=== PATIENT | male | born 1980 | race Caucasian/White ===

== ENCOUNTER 2019-02-28 22:26 | Outpatient (CLI) | payer OTHER | END 2019-02-28 22:27 | disposition EMS.NT | LOC: EMS 22:26 | PROVIDERS: ATTEND Surgery | DX: R55 Syncope and collapse (principal) ==

== ENCOUNTER 2019-02-28 23:43 | Emergency (ER) | payer OTHER ==
[2019-03-01] MEDS ORDERED: ONDANSETRON 4 MG/2 ML VIAL IVP STA
--- NOTE | 2019-03-01 00:03 | ED Physician Documentation ---
PD HPI CHEST PAIN - Stated complaint Stated Complaint: DIZZY - Chief complaint Chief Complaint: General - History obtained from History obtained from: Patient, EMS - History of Present Illness Timing - onset: How many hours ago (3) Timing - onset during: Light activity Timing - details: Abrupt onset, Still present (Patient had onset about 830 this evening of substernal chest pain associated with nausea lightheadedness and feeling sweaty. He states he got very lightheaded and had a near syncopal episode in the bathroom. He denied any injury from it. He does not feel that he completely passed out. He continued with the chest discomfort. He thought it would be indigestion or a reaction to eating shrimp they had had for dinner just prior to that. However the chest discomfort and lightheadedness has continued so they called EMS for transfer to the hospital. En route he is found to be bradycardic approximately rate of 50. He is slightly hypotensive with a blood pressure of 97/64. He has not had any prior heart disease. He was feeling okay earlier in the day.) Quality: Pressure, Tightness Location: Substernal Radiation: Back. No: Neck Improved by: No: Rest Worsened by: No: Inspiration, Movement Associated symptoms: Diaphoresis, Nausea, Feeling faint / dizzy, General Weakness. No: Shortness of air, Palpitations Similar symptoms before: Has not had sx before Recently seen: Not recently seen Review of Systems Constitutional: denies: Fever, Chills, Myalgias Nose: denies: Rhinorrhea / runny nose, Congestion Throat: denies: Sore throat Cardiac: reports: Chest pain / pressure. denies: Palpitations, Pedal edema, C facundo pain Respiratory: denies: Dyspnea, Cough, Wheezing GI: reports: Nausea. denies: Abdominal Pain, Vomiting, Diarrhea : denies: Dysuria, Frequency Neurologic: reports: Generalized weakness, Near syncope. denies: Focal weakness, Numbness, Syncope, Headache PD PAST MEDICAL HISTORY - Past Medical History Past Medical History: Yes Cardiovascular: Hypertension Respiratory: None Neuro: None Endocrine/Autoimmune: None GI: GERD - Past Surgical History Past Surgical History: Yes - Allergies Allergies/Adverse Reactions: Allergies Allergy/AdvReac Type Severity Reaction Status Date / Time shellfish derived Allergy Severe Unknown Verified 02/28/19 23:53 - Social History Does the pt smoke?: No Smoking Status: Never smoker Does the pt drink ETOH?: Yes Does the pt have substance abuse?: No - Family History Family history: denies: CAD - Immunizations Immunizations are current?: Yes - POLST Patient has POLST: No PD ED PE NORMAL - Vitals Vital signs reviewed: Yes - General General: Alert and oriented X 3, Well developed/nourished, Other (He is pale and diaphoretic and does not look well. Vital signs are bradycardic at 50-55 and is mildly hypotensive with a blood pressure of 90.) - HEENT HEENT: Pharynx benign - Neck Neck: Supple, no meningeal sign, No adenopathy - Cardiac Cardiac: No murmur - Respiratory Respiratory: No respiratory distress, Clear bilaterally - Abdomen Abdomen: Normal bowel sounds, Soft, Non tender, Non distended, No organomegaly - Male Male : Deferred - Rectal Rectal: Deferred - Back Back: No CVA TTP - Derm Derm: Other (He is pale and diaphoretic. He is awake alert and conversant.). No: Normal color, Warm and dry - Extremities Extremities: No deformity, No edema, No calf tenderness / cord - Neuro Neuro: Alert and oriented X 3, No motor deficit, Normal speech Eye Opening: Spontaneous Motor: Obeys Commands Verbal: Oriented GCS Score: 15 Results - Vitals Vitals: Vital Signs - 24 hr 02/28/19 02/28/19 03/01/19 23:47 23:53 00:28 Temperature 36 C L Heart Rate 55 L 51 L 54 L Respiratory 16 Rate Blood Pressure 97/64 96/60 O2 Saturation 96 99 99 03/01/19 03/01/19 03/01/19 00:30 00:31 00:43 Temperature Heart Rate 50 L 52 L Respiratory Rate Blood Pressure 89/62 L 87/61 L O2 Saturation 99 99 Oxygen O2 Source Room air - EKG (time done) 23:51 Rate: Rate (enter#) (49) Rhythm: Sinus bradycardia [place]: Normal Intervals: Normal VA QRS: Normal Ischemia: Normal ST segments, ST elevation c/w ischemia (very subtle but not diagnostic ST changes inferiorly). No: ST depression, T wave inversion - Labs Labs: Laboratory Tests 03/01/19 03/01/19 03/01/19 00:10 00:10 00:10 WBC 10.2 RBC 4.37 L Hgb 13.6 L Hct 40.3 L MCV 92.1 MCH 31.1 H MCHC 33.8 RDW 13.2 Plt Count 231 MPV 8.5 Neut # (Auto) 7.3 H Lymph # (Auto) 2.1 [place] # (Auto) 0.7 Eos # (Auto) 0.1 Baso # (Auto) 0.1 Absolute Nucleated RBC 0.00 Nucleated RBC % 0.0 Sodium 140 Potassium 3.9 Chloride 107 Carbon Dioxide 25 Anion Gap 8.0 BUN 17 Creatinine 0.9 Estimated GFR (MDRD) 93 Glucose 128 H Calcium 8.5 Magnesium 2.1 Total Bilirubin 0.4 AST 47 H ALT 64 H Alkaline Phosphatase 65 Troponin I 0.62 H* Total Protein 6.7 Albumin 3.6 Globulin 3.1 Albumin/Globulin Ratio 1.2 Lipase 26 PD MEDICAL DECISION MAKING - ED course Complexity details: reviewed results (We now have the first troponin available and its 0.6 which is confirmatory of acute coronary syndrome etiology for symptoms as opposed to GI causes.), considered differential (Concerning for a simple as indigestion or heartburn with vasovagal response or allergic reaction or more concerning would be acute VT. He has the persistent pallor and diaphoresis and bradycardia along with very subtle EKG changes that are not diagnostic of ST elevation but in the picture of it is concerning for inferior VT. A faxed the EKG over to the ER at [facility] and they refuted. It was not convincing enough to call a STEMI but they did accept transfer of the patient given the high concern for acute coronary syndrome. I started the patient on VT medications. He is given fluid bolus. His blood pressure did not improve with that. Given the likely inferior distribution for the VT, he will be given more fluids as well but we also started low-dose pressor support. He will be transferred emergently over to [facility] for cardiac evaluation. The ER physician Dr. Stewart accepted transfer. They will decide on cardiology or [facility] after their evaluation they are.), d/w patient - Critical Care Time(min): 45 Time Includes: Direct patient care, Document care, Coordinate care, Medical consult Data interpretation: Labs, Pulse ox, CXR Procedures excluded from critical care time: EKG Departure - Departure Disposition: 02 Transfer Acute Care Hosp Clinical Impression: Inferior myocardial infarction Chest pain Qualifiers: Chest pain type: precordial pain Qualified Code(s): R07.2 - Precordial pain Hypotension Qualifiers: Hypotension type: unspecified hypotension type Qualified Code(s): I95.9 - Hypotension, unspecified Condition: Stable Record reviewed to determine appropriate education?: Yes
[2019-03-01] MEDS ORDERED: ASPIRIN CHEW 81 MG TABLET ONE (00:11)
[2019-03-01] MEDS ORDERED: HEPARIN 5,000 UNIT/ML VIAL ONE (00:20)
[2019-03-01] MEDS ORDERED: HEPARIN 25000UNITS/500ML (D5W) 25,000 UNIT/500 ML BAG IV ONE (00:20)
[2019-03-01] MEDS ORDERED: CLOPIDOGREL 300 MG TABLET PO ONE (00:21)
--- NOTE | 2019-03-01 00:23 | XRAY Report ---
Reason: chest pain Procedure Date: 03/01/2019 Accession Number: [id number] / [id number] Procedure: XR - Chest 1 View X-Ray CPT Code: 02695 FULL RESULT: EXAM: CHEST RADIOGRAPHY EXAM DATE: 03/01/2019 12:12 AM. CLINICAL HISTORY: Chest pain. COMPARISON: None. TECHNIQUE: 1 view. FINDINGS: Lungs/Pleura: No focal opacities evident. No pleural effusion. No pneumothorax. Mediastinum: Within exam limitations, the cardiomediastinal contour is normal. Other: None. IMPRESSION: Normal single view chest. RADIA
[2019-03-01] MEDS ORDERED: HEPARIN 25000UNITS/500ML (D5W) 25,000 UNIT/500 ML BAG IV STA (00:37)
[2019-03-01] MEDS ORDERED: ASPIRIN CHEW 81 MG TABLET PO STA (00:37)
[2019-03-01] MEDS ORDERED: HEPARIN 5,000 UNIT/ML VIAL IVP STA (00:37)
[2019-03-01 00:40] LABS: ALBUMIN 3.6 g/dL (3.2-5.5); ALBUMIN/GLOBULIN RATIO 1.2 (1.0-2.2); BILIRUBIN,TOTAL 0.4 mg/dL (0.2-1.0); CALCIUM 8.5 mg/dL (8.5-10.3); CREATININE 0.9 mg/dL (0.6-1.2); MAGNESIUM 2.1 mg/dL (1.7-2.8); TOTAL PROTEIN 6.7 g/dL (6.7-8.2)
[2019-03-01 00:41] LABS: BASOPHILS # (AUTO) 0.1 10^3/uL (0.0-0.1); BASOPHILS % (AUTO) 0.6 %; EOSINOPHILS # (AUTO) 0.1 10^3/uL (0.0-0.7); EOSINOPHILS % (AUTO) 0.9 %; HGB - HEMOGLOBIN 13.6 g/dL (14.0-18.0); LYMPHOCYTES # (AUTO) 2.1 10^3/uL (1.5-3.5); LYMPHOCYTES % (AUTO) 20.4 %; MEAN CORPUSCULAR HEMOGLOBIN 31.1 pg (27.0-31.0); MEAN CORPUSCULAR HGB CONC 33.8 g/dL (32.0-36.0); MEAN CORPUSCULAR VOLUME 92.1 fL (80.0-94.0); MEAN PLATELET VOLUME 8.5 fL (7.4-11.4); MONOCYTES # (AUTO) 0.7 10^3/uL (0.0-1.0); MONOCYTES % (AUTO) 6.5 %; NEUTROPHILS # (AUTO) 7.3 10^3/uL (1.5-6.6); NEUTROPHILS % (AUTO) 71.6 %; PLT - PLATELET COUNT 231 10^3/uL (130-450); RED BLOOD COUNT 4.37 10^6/uL (4.70-6.10); RED CELL DISTRIBUTION WIDTH 13.2 % (12.0-15.0); WHITE BLOOD COUNT 10.2 x10^3/uL (4.8-10.8)
[2019-03-01] MEDS ORDERED: CLOPIDOGREL 300 MG TABLET PO STA (00:47)
[2019-03-01] MEDS ORDERED: DOPamine 800 MG/500 ML 800 MG/500 ML BAG IV STA (00:51)
[2019-03-01] MEDS ORDERED: SODIUM CHLORIDE 0.9% 1,000 ML IV ONE ×3 (00:53→00:54)
[2019-03-01] MEDS ORDERED: DOPamine 800 MG/500 ML 800 MG/500 ML BAG IV ONE (00:57)
[2019-03-01 01:06] VITALS: BP 95/62
== END 2019-03-01 01:01 | disposition short-term general hospital (02) ==
LOC: ED 23:43
DX: I21.19 ST elevation (STEMI) myocardial infarction involving other coronary artery of inferior wall (principal); R07.2 Precordial pain; I95.9 Hypotension, unspecified; I10 Essential (primary) hypertension; R00.1 Bradycardia, unspecified; I24.9 Acute ischemic heart disease, unspecified
CPT/HCPCS: 36415; 71045; 80053; 83690; 83735; 84484; 85025; 93005; 96374; 96375; 99284; 99291; A9270

== ENCOUNTER 2019-03-01 01:11 | Outpatient (CLI) | payer OTHER | END 2019-03-01 01:12 | disposition short-term general hospital (02) | LOC: EMS 01:11 | PROVIDERS: ATTEND Surgery | DX: R07.9 Chest pain, unspecified (principal) | CPT/HCPCS: A0425; A0426 ==

== ENCOUNTER 2019-04-10 07:26 | Outpatient (CLI) | payer OTHER ==
--- NOTE | 2019-04-10 16:42 | MRI Report ---
Reason: TECH BEHIND..PER PT..WAITED ALMOST 2 HRS WLL R/S.. Procedure Date: 04/10/2019 Accession Number: [id number] / [id number] Procedure: MRI - Knee LT W/O CPT Code: FULL RESULT: EXAM: LEFT KNEE MRI WITHOUT CONTRAST EXAM DATE: 04/10/2019 08:12 AM. CLINICAL HISTORY: Left knee pain. No known injury. COMPARISON: None. TECHNIQUE: Multiplanar, multisequence T1-weighted and fluid-sensitive sequences of the knee without contrast. Other: None. FINDINGS: Bones: Diffuse marrow edema patella. Anterior knee and linear subcortical sclerosis suggestive of nondisplaced fracture. Bony hypertrophy of the tibial tuberosity. Multipartite patella with osseous body superior lateral patella. 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 Moderate chondromalacia mid medial femoral condyle. Medial Meniscus: The medial meniscus is intact. Lateral Meniscus: The lateral meniscus is intact. Cruciate Ligaments: The anterior and posterior cruciate ligaments are intact. Collateral Ligaments: The medial collateral and lateral collateral ligamentous structures are intact. Tendons: Distal patellar tendon tendinitis. Edema tibial tuberosity. Musculature: No edema or fatty atrophy. Other: No effusion. No popliteal cyst. No loose bodies. The medial and lateral retinacula are intact. Prepatellar subcutaneous edema or small bursal fluid collection. IMPRESSION: 1. Distal patella tendinitis. 2. Diffuse marrow edema patella suggestive of patellar fracture with possible anterior patella subcortical linear sclerotic fracture line. 3.Possible reactive marrow edema patella from severe medial patellar facet and patellar apex chondromalacia. 4. 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 5. Negative for meniscus tear or internal derangement. 6. 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 RADIA
== END 2019-04-10 07:27 | disposition home or self-care (01) ==
LOC: DI 07:26
PROVIDERS: ATTEND Physician Assistant
DX: M76.52 Patellar tendinitis, left knee (principal); M94.262 Chondromalacia, left knee